=== PATIENT | male | born 1955 | race Caucasian/White ===

== ENCOUNTER → 2019-07-29 10:07 | Outpatient (CLI) | payer OTHER, SELFPAY ==
--- NOTE | 2019-07-29 10:09 | DI.RAD.S_ITS ---
PROCEDURE: XR LUMBAR SPINE 2-3V INDICATIONS: chronic axial back pain TECHNIQUE: 3 views of the lumbar spine were acquired. COMPARISON: None. FINDINGS: Bones: 5 [id number] vertebrae are present. There is normal bony alignment. No vertebral body compression fractures. No suspicious bony lesions. Soft tissues: Overlying bowel gas pattern is normal. No suspicious soft tissue calcifications. IMPRESSION: Degenerative disc disease is present and is moderately severe at C4-5 with facet osteoarthritis moderately severe to severe at that level also. No subluxation is associated. Significant spinal and foraminal stenosis likely is present at L4-L5 and potentially mild such stenosis may be present at L5-S1. No trauma found. Dictated by: Edson Rodriguez M.D. on 07/29/2019 at 11:09 Approved by: Edson Rodriguez M.D. on 07/29/2019 at 11:10
== END ==
PROVIDERS: Family Provider Family Medicine; PCP Family Medicine; Visit Provider Registered Nurse
DX: M47.816 Spondylosis without myelopathy or radiculopathy, lumbar region (principal); M48.062 Spinal stenosis, lumbar region with neurogenic claudication; M51.36 Other intervertebral disc degeneration, lumbar region; G89.29 Other chronic pain; M51.26 Other intervertebral disc displacement, lumbar region
CPT/HCPCS: 72100; 99214

== ENCOUNTER 2019-08-22 09:41 | Outpatient (CLI) | payer OTHER, SELFPAY ==
[2019-08-22] VITALS (9 sets, daily range): BP systolic 101–145; BP diastolic 58–89; PULSE 68–77; RESP 16–18; O2SAT 98–100
--- NOTE | 2019-08-22 09:44 | DI.RAD.S_ITS ---
PROCEDURE: PAIN L/S FACET INJ/BLK 1ST DEBIB COMPARISON: None. INDICATIONS: SPONDYLOSIS FINDINGS: 6 intraoperative fluoroscopy images demonstrates new placement of left L4 and L4-L5 facet joints bilaterally. IMPRESSION: Fluoroscopy guidance for pain management. Dictated by: Germaine Harding M.D. on 08/22/2019 at 11:20 Approved by: Germaine Harding M.D. on 08/22/2019 at 11:21
[2019-08-22] MEDS: MIDAZOLAM 5 MG/5 ML VIAL IV (10:46)
[2019-08-22] MEDS: fentaNYL 100 MCG/2 ML INJ 50 MCG IV (10:47)
[2019-08-22] MEDS: BETAMETHASONE 30 MG/5 ML MDV 12 MG INJ (10:54)
[2019-08-22] MEDS: BUPIVACAINE 0.5% (PF) VIAL 2 ML INJ (10:54)
[2019-08-22] MEDS: IOPAMIDOL 15 ML VIAL 3 ML INJ (10:54)
[2019-08-22] MEDS: LIDOCAINE 1% 20 ML 10 ML INJ (10:54)
--- NOTE | 2019-08-22 10:58 | PC.NURSE ---
ASSISTING PT OFF TABLE AND TRANSPORTING TO POST PROC AREA IN STABLE CONDITION. PASSING RN CARE OF PT OFF TO ABDULLAHI Fitzgerald RN.
--- NOTE | 2019-08-22 11:06 | P.PCN_ITS ---
Procedures Date/Time Date of procedure: 08/22/19 Time of procedure: 11:06 General Procedure description: PREOP DIAGNOSIS 1. FACET ARTHROPATHY 2. AXIAL LBP 3. MULTILEVEL DDD POST OP DIAGNOSIS 1. FACET ARTHROPATHY 2. AXIAL LBP 3. MULTILEVEL DDD PROCEDURES 1. FLUORSCOPICALLY GUIDED CONTRAST CONTROLLED FACET JOINT INJECTIONS BILATERAL L3/4, L4/5 PHYSICIAN: Diogo Lucas DO INDICATIONS: Edson is referred by Dr. Hidalgo for treatment of Axial LBP FINDINGS Multilevel Facet Arthropathy with Clinically significant axial LBP DESCRIPTION OF PROCEDURE Fluoroscopically guided, contrast-controlled bilateral L3/4, L4/5 facet joint i njections. Following review of allergy and review of potential side effects and complications, including, but not necessarily limited to, infection, allergic reaction, local tissue breakdown, stroke, temporary or permanent nerve injury, paralysis, and possible , the patient indicated that the patient understood and agreed to proceed. An informed consent document was signed by the patient, witnessed by a nurse, and placed in the patient's chart. Additionally, other treatment options including medications, modalities, and physical therapy were reviewed with the patient. After review of previous anaesthesic history and IV conscious sedation the patient was deemed safe to proceed with todays procedure with IV conscious sedation as ASA class II designation. Safety time-out was performed to confirm patient ID, procedure to be performed and site of procedure. IV sedation was accomplished with a combination of 3mg of Versed and 50mcg of Fentanyl was administered by the RN after DO order, titrated to patient comfort during the course of the procedure while the patient remained responsive to all verbal commands. In the prone position, following sterile prep and drape of the lumbar region, the posterior aspect of the L3/4, L4/5 facet joints were identified fluoroscopically. The skin was anesthetized via a 25-gauge 1.5-inch needle with 1% lidocaine solution into the corresponding facet joints. At this point, a 22- gauge 3.5-inch spinal needle was atraumatically introduced and advanced under fluoroscopic guidance into the corresponding facet joints. Following negative aspiration, injections of approximately 0.2-cc of Isovue 200 confirmed interarticular placement without vascular uptake. The identical procedure was then performed at the L3/4, L4/5 facet joints on the left. Radiological data, including multiple fluoroscopic views of the lumbosacral spine, reveal a spinal needle at the L3/4, L4/5 facet joints bilaterally. Subsequent views show flow of contrast material both superiorly and inferiorly within the joint space without vascular or intrathecal uptake. At this point, a total of 0.5cc including a mixture of 0.25cc Marcaine and 0.25cc betamethasone was injected without complication into each of the corresponding facet joints. The patient tolerated the procedure well without signs or symptoms of complications prior to transfer to the recovery area continued monitoring without incident. The patient was then transferred to the recovery area where they were observed for an appropriate period of time after the injection. The patient reported a VAS score of 7 prior to the procedure and a post-procedure VAS of 0. Total Fluoroscopy Time: 12 seconds Total Conscious Sedation Time: 24min POST OP INSTRUCTIONS The patient was provided a Pain Log to continue to record their response to the target-specific procedure prior to follow-up visit with their referring physician. Additionally, specific post-injection care instructions and a contact number to our office were provided if concerns arise regarding possible complications associated with the procedure are suspected. Diogo Lucas DO Complications: none
--- NOTE | 2019-08-22 11:43 | PC.NURSE ---
at 1104 returned from procedure via w/c, able to transfer self to recliner, pain free, snacks provided, tolerated, assumed care from Kriss
== END 2019-08-22 11:30 | disposition home or self-care (01) ==
LOC: RAD 09:44
PROVIDERS: Family Provider Family Medicine; PCP Family Medicine; Referring Provider Physical Medicine & Rehabilitation; Visit Provider Physical Medicine & Rehabilitation
DX: M47.816 Spondylosis without myelopathy or radiculopathy, lumbar region (principal); M54.5 Low back pain; M51.36 Other intervertebral disc degeneration, lumbar region
CPT/HCPCS: 64493; 64494; 99152; J0702; J2250; J3010

== ENCOUNTER → 2020-01-04 08:42 | Outpatient (CLI) | payer OTHER, SELFPAY ==
[2020-01-05 08:06] LABS: COVID19 Sendout Not Detected (Not Detect)
== END ==
PROVIDERS: Family Provider Family Medicine; PCP Family Medicine; Visit Provider Nurse Practitioner
DX: Z01.812 Encounter for preprocedural laboratory examination (principal)
CPT/HCPCS: 87635

== ENCOUNTER 2020-01-07 08:34 | Outpatient (CLI) | payer OTHER, SELFPAY ==
[2020-01-07] VITALS (9 sets, daily range): BP systolic 134–168; BP diastolic 69–91; PULSE 69–80; RESP 15–17; TEMP 36.9; O2SAT 93–100
--- NOTE | 2020-01-07 08:36 | DI.RAD.S_ITS ---
PROCEDURE: PAIN L/S FACET INJ/BLK 1ST DEBBI COMPARISON: [facility], XA, PAIN L/S FACET INJ/BLK 1ST DEBBI, 08/22/2019, 10:48. INDICATIONS: SPONDYLOSIS FINDINGS: Bilateral L3-L5 medial branch block needle tip ositioning has been performed. IMPRESSION: Successful needle tip localization for bilateral mid and lower lumbosacral spine and medial branch block procedures (6 total). Dictated by: Edson Rodriguez M.D. on 01/07/2020 at 12:00 Approved by: Edson Rodriguez M.D. on 01/07/2020 at 12:01
[2020-01-07] MEDS: MIDAZOLAM 5 MG/5 ML VIAL IV (10:08)
[2020-01-07] MEDS: fentaNYL 100 MCG/2 ML INJ 50 MCG IV (10:10)
[2020-01-07] MEDS: BUPIVACAINE 0.5% (PF) VIAL 5 ML INJ (10:12)
[2020-01-07] MEDS: IOPAMIDOL 15 ML VIAL 3 ML INJ (10:12)
--- NOTE | 2020-01-07 10:29 | PM.PROC.IR.1 ---
Date/Time/Diagnoses Pre-procedure diagnosis: 1. FACET ARTHROPATHY Post-procedure diagnosis: same Procedure Notes Procedure: 1. BILATERAL- L4, L5 and S1 DIAGNOSTIC MB BLOCKS with LA Anesthetic Indications: Hai is referred by for treatment of Bilateral Axial LBP. Physician: Diogo Lucas Complications: none Procedure in detail & Post-procedure care: DESCRIPTION OF PROCEDURE Fluoroscopically guided, contrast-controlled bilateral L4, L5 and S1 medial branch blocks with 0.5cc of 0.5% Marcaine. Following review of allergy and review of potential side effects and complications, including, but not necessarily limited to, infection, allergic reaction, local tissue breakdown, nerve injury, paralysis, stroke and possible , the patient indicated that the patient understood and agreed to proceed. An informed consent document was signed by the patient, witnessed by a nurse, and placed in the patient's chart. After review of previous anaesthesic history and IV conscious sedation the patient was deemed safe to proceed with today's procedure with IV conscious sedation as ASA class II designation. Safety time-out was performed to confirm patient ID, procedure to be performed and site of procedure. IV sedation was accomplished with a combination of 3mg of Versed and 50mcg of Fentanyl was administered by the RN after DO order, titrated to patient comfort during the course of the procedure while the patient remained responsive to all verbal commands In the prone position, following sterile prep and drape of the lumbar region, the right L4, L5 and S1 anatomical location of the medial branch of the dorsal ramus was identified fluoroscopically. Subsequently an anesthetic skin wheal using 1% lidocaine solution was initiated at each of the anatomical spots. Subsequently then a 22-gauge 3.5-inch spinal needle was atraumatically introduced and advanced under fluoroscopic guidance at each of the corresponding sites at the right L4, L5 and S1 MB. After negative aspiration, 0.2cc of Isovue 200 was injected, confirming placement without vascular or intrathecal uptake. Subsequently then 0.5cc of 0.5% Marcaine solution was injected at each of the corresponding sites at the right L4, L5 and S1 medial branch locations. The identical procedure was replicated on the left. The patient tolerated the procedure well without signs or symptoms of complications prior to transfer to the recovery area continued monitoring without incident. Post-procedure, the patient was monitored initiating provocative activities to measure the amount of relief from block of the facetogenic pain. The patient reported a VAS of 7 prior to the procedure and a post-procedure VAS of 1. It has been a pleasure to assist in the diagnostic and therapeutic care of your patient. POST OP INSTRUCTIONS The patient was provided with a Pain Log to complete over the next several hours and subsequent days prior to the patient's follow up with the ordering physician. 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 The patient is aware, was provided, once again, with a Pain Log and will follow up with the referring physician for review and clinical correlation
--- NOTE | 2020-01-07 10:37 | PC.NURSE ---
pt returned to pre proc room via . Stable transfer from wc to chair. Rates pain 0/10. Monitoring resumed by HENRY Mtz
== END 2020-01-07 10:57 ==
LOC: RAD 08:35
PROVIDERS: Family Provider Family Medicine; PCP Family Medicine; Referring Provider Physical Medicine & Rehabilitation; Visit Provider Physical Medicine & Rehabilitation
DX: M47.816 Spondylosis without myelopathy or radiculopathy, lumbar region (principal); M47.817 Spondylosis without myelopathy or radiculopathy, lumbosacral region; M54.5 Low back pain
CPT/HCPCS: 64493; 64494; 99152; J0702; J2250; J3010

== ENCOUNTER → 2020-02-29 11:19 | Outpatient (CLI) | payer OTHER, SELFPAY ==
[2020-03-01 06:13] LABS: COVID19 Sendout Not Detected (Not Detect)
== END ==
PROVIDERS: Family Provider Family Medicine; PCP Family Medicine; Visit Provider Physician Assistant
DX: Z11.59 Encounter for screening for other viral diseases (principal)
CPT/HCPCS: 87635

== ENCOUNTER 2020-03-03 07:21 | Outpatient (CLI) | payer OTHER, SELFPAY ==
[2020-03-03] VITALS (13 sets, daily range): BP systolic 122–157; BP diastolic 58–72; PULSE 62–75; RESP 15–25; TEMP 36.6; O2SAT 97–100
--- NOTE | 2020-03-03 07:24 | DI.RAD.S_ITS ---
PROCEDURE: PAIN L/S MED/LAT N RFA INDICATIONS: SPONDYLOSIS COMPARISON: None. FINDINGS: Fluoroscopic spot filming was performed to verify placement of spinal needles at the L3, L4, and L5 level(s), as labeled on the films. Appropriate location(s) of the needle tip(s) was confirmed by injection of iodinated contrast. IMPRESSION: Successful needle tip localization for medial branch block procedures bilaterally involving the L3, L4, and L5 levels, 6 total procedures. Dictated by: Edson Rodriguez M.D. on 03/03/2020 at 10:56 Approved by: Edson Rodriguez M.D. on 03/03/2020 at 10:57
[2020-03-03] MEDS: fentaNYL 100 MCG/2 ML INJ 50 MCG IV (08:30)
--- NOTE | 2020-03-03 08:37 | PC.NURSE ---
Pt slightly confused. Unable to remember his normal medications or what medicaiton he took this morning. Drank water on the way in to procedure, recalls being told not to drink or eat for two hours prior to procedure. Took Atenolol and Coumadin last night and this am. Dr. Lucas aware.
[2020-03-03] MEDS: MIDAZOLAM 5 MG/5 ML VIAL IV (08:51)
[2020-03-03] MEDS: LIDOCAINE 1% 20 ML 10 ML INJ (09:03)
[2020-03-03] MEDS: BUPIVACAINE 0.5% (PF) VIAL 5 ML INJ (09:04)
--- NOTE | 2020-03-03 09:13 | P.PCN_ITS ---
Date/Time/Diagnoses Date of procedure: 03/03/20 Time of procedure: 09:13 Pre-procedure diagnosis: 1. RECALCITRANT FACET ARTHROPATHY Post-procedure diagnosis: same Procedure Notes Procedure: 1. BILATERAL L3, L4 AND L5 MEDIAL BRANCH RADIOFREQUENCY NEUROTOMY Indications: Hai Sandhu is referred by for treatment of facet arthropathy. Physician: Diogo Lucas Total Fluoroscopy time (seconds): 24 Total sedation minutes: 36 Complications: none Procedure in detail & Post-procedure care: DESCRIPTION OF PROCEDURE Bilateral L3, L4 and L5 medial branch radiofrequency neurotomy The patient is well known to this clinic having undergone previous facet injections with good but temporary relief. The patient has experienced appropriate, concordant relief with previous facet and median branch blocks but the patient's pain has been recalcitrant to further conservative measures. Therefore, based upon the patient's relief and persistent symptoms, the patient is considered an appropriate candidate for facet rhizotomy. All of the patient's questions regarding the risks versus benefits of the procedure, including, but not limited to, bleeding, infection, temporary as well as lasting nerve injury, paralysis, stroke, and , as well treatment alternatives were answered to satisfaction. After obtaining informed consent, denial of pertinent drug allergies, as well as being made aware of the potential risks of bleeding, infection, spinal cord trauma, paralysis, temporary and permanent nerve damage, seizure, stroke, and possible , the patient was brought to the fluoroscopy suite and positioned prone on the fluoroscopy table. The lumbar region was prepped with Betadine and covered with a fenestrated drape in the usual sterile fashion. Appropriate monitors applied including pulse oximeter, pulse, and blood pressure for regular monitoring throughout the procedure. After review of previous anaesthesic history and IV conscious sedation the patient was deemed safe to proceed with today's procedure with IV conscious sedation as ASA class II designation. Safety time-out was performed to confirm patient ID, procedure to be performed and site of procedure. IV sedation was accomplished with a combination of 5mg of Versed and 50mcg of Fentanyl administered by the RN after DO order, titrated to patient comfort during the course of the procedure while the patient remained responsive to all verbal commands. After local infiltration using 1% lidocaine, under fluoroscopic guidance, a 10- cm RF insulated needle with a 10-mm active tip was positioned parallel to the junction of the right the superior articulating process where the L5 medial branch resides. Needle placement was confirmed with motor stimulation of .5v on the right which produced local stimulation without radicular component. The stimulation was then increased to 2v with, once again, only local multifidus stimulation without radicular component. The needle was then removed and the identical procedure was performed along the length of the right L4 medial branch with motor stimulation at .7v on the right. The identical procedure was once again performed along the length of the right L3 and medial branch with motor stimulation of .5v on the right. The medial branches were then anesthetised with 0.5% marcaine. This was then followed by two discreet lesions performed at 80 degrees Celsius for 90 seconds each. The identical procedures were repeated on the left. The patient tolerated the procedure well without signs or symptoms of complications prior to transfer to the recovery area continued monitoring without incident. The patient was then transferred to the recovery area where they were observed for an appropriate period of time after the injection. The patient reported a VAS score of 7 prior to the procedure and a post-procedure VAS of 1. POST OP INSTRUCTIONS The patient was provided a Pain Log to continue to record the patient's response to the target-specific procedure prior to the patient's follow-up visit with the referring physician. Additionally, specific post-injection care instructions and a contact number to our office were provided if concerns arise regarding possible complications associated with the procedure are suspected.
== END 2020-03-03 09:30 | disposition home or self-care (01) ==
LOC: RAD 07:22
PROVIDERS: Family Provider Family Medicine; PCP Family Medicine; Referring Provider Physical Medicine & Rehabilitation; Visit Provider Physical Medicine & Rehabilitation
DX: M47.816 Spondylosis without myelopathy or radiculopathy, lumbar region (principal)
CPT/HCPCS: 64635; 64636; 99152; 99153; J2250; J3010

== ENCOUNTER → 2020-06-01 10:33 | Outpatient (CLI) | payer OTHER, SELFPAY ==
[2020-06-01 12:56] LABS: COVID19 -Nasal RAPID Negative (Negative)
== END ==
PROVIDERS: Family Provider Family Medicine; PCP Family Medicine; Visit Provider Physical Medicine & Rehabilitation
DX: Z11.59 Encounter for screening for other viral diseases (principal)
CPT/HCPCS: 87635; C9803

== ENCOUNTER 2020-06-02 10:21 | Outpatient (CLI) | payer OTHER, SELFPAY ==
[2020-06-02] VITALS (9 sets, daily range): BP systolic 131–179; BP diastolic 56–85; PULSE 69–75; RESP 15–23; TEMP 36.7; O2SAT 97–100
--- NOTE | 2020-06-02 10:22 | DI.RAD.S_ITS ---
PROCEDURE: PAIN L/S TRANSFORAMINAL INJECT INDICATIONS: SPONDYLOSIS COMPARISON: [facility], , PAIN L/S MED/LAT N RFA, 03/03/2020, 8:32. FINDINGS: Fluoroscopic spot filming was performed to verify placement of a spinal needle at the L3-L4 level, as labeled on the films. Appropriate location of the needle tip was confirmed by injection of iodinated contrast. IMPRESSION: Intraprocedural examination within normal limits. Dictated by: Mauricio Alcantar M.D. on 06/02/2020 at 11:29 Approved by: Mauricio Alcantar M.D. on 06/02/2020 at 11:29
[2020-06-02] MEDS: MIDAZOLAM 5 MG/5 ML VIAL IV (11:00)
[2020-06-02] MEDS: fentaNYL 100 MCG/2 ML INJ 50 MCG IV (11:00)
[2020-06-02] MEDS: BETAMETHASONE 30 MG/5 ML MDV 6 MG INJ (11:03)
[2020-06-02] MEDS: DEXAMETHASONE 10 MG/ML VIAL 20 MG INJ (11:03)
[2020-06-02] MEDS: IOPAMIDOL 15 ML VIAL 3 ML INJ (11:03)
[2020-06-02] MEDS: BUPIVACAINE 0.25% (PF) VIAL 2 ML INJ (11:03)
--- NOTE | 2020-06-02 11:16 | PM.PROC.IR.1 ---
Date/Time/Diagnoses Date of procedure: 06/02/20 Time of procedure: 11:16 Pre-procedure diagnosis: 1. FORAMINAL STENOSIS WITH LE SYMPTOMS Post-procedure diagnosis: same Procedure Notes Procedure: 1. FLUOROSCOPICALLY GUIDED CONTRAST CONTROLLED TRANSFORAMINAL EPIDURAL STEROID INJECTION - RIGHT L3/4 TFESI Indications: Hai Sandhu is referred by Dr. Hidalgo for treatment of Foraminal Stenosis with right LE Symptoms Physician: Diogo Lucas Total Fluoroscopy time (seconds): 14 Total sedation minutes: 10 Complications: none Procedure in detail & Post-procedure care: FINDINGS Foraminal Nerve Root Compression secondary to disc disease and facet hypertrophy DESCRIPTION OF PROCEDURE Following review of allergy and review of potential side effects and complications, including, but not necessarily limited to, infection, allergic reaction, local tissue breakdown, stroke, temporary or permanent nerve injury, paralysis, and possible , the patient indicated that the patient understood and agreed to proceed. An informed consent document was signed by the patient, witnessed by a nurse, and placed in the patient's chart. Additionally, other treatment options including medications, modalities, and physical therapy were reviewed with the patient. After review of previous anaesthesic history and IV conscious sedation the patient was deemed safe to proceed with today?s procedure with IV conscious sedation as ASA class II designation. Safety time-out was performed to confirm patient ID, procedure to be performed and site of procedure. IV sedation was accomplished with a combination of 3mg of Versed and 50mcg of Fentanyl was administered by the RN after DO order, titrated to patient comfort during the course of the procedure while the patient remained responsive to all verbal commands In the prone position following sterile prep and drape of the lumbar region, the right L3/4 posterior neuroforamen was identified fluoroscopically. The skin was anesthetized via a 25-gauge 1.5-inch needle with 1% lidocaine solution. At this point, a 25-gauge 3.5-inch spinal needle was atraumatically introduced and advanced under fluoroscopic guidance through the posterior right L3/4 neuroforamen to approximately the anterior aspect of the canal. Depth was confirmed on lateral view. Following negative aspiration, injection of approximately 1.5 cc of Isovue 200 under live fluoroscopy in the AP view confirmed excellent flow along the nerve root, into the epidural space without vascular or intrathecal uptake observed Radiological data, including multiple fluoroscopic views of the lumbosacral spine, reveal a spinal needle at the right L3/4 posterior neuroforamen. Subsequent views show flow of contrast material flowing superiorly and inferiorly along the nerve root confirming epidural flow. Subsequently, a test dose of 1.5 cc of 1% lidocaine solution was administered and patient was observed for two minutes for signs or symptoms of complications, including abdominal pain, shortness of breath, bilateral upper or lower extremity weakness, nausea and vomiting, prior to steroid injection. At this point, a total of 3cc or 20mg of dexamethasone and 6mg of betamethasone was injected without incident. The patient tolerated the procedure well without signs or symptoms of complications prior to transfer to the recovery area continued monitoring without incident. The patient was then transferred to the recovery area where they were observed for an appropriate time after the injection. The patient reported a VAS score of 7 prior to the procedure and a post-procedure VAS of 0. POST OP INSTRUCTIONS The patient was provided a Pain Log to continue to record their response to the target-specific procedure prior to follow-up visit with their referring physician. Additionally, specific post-injection care instructions and a contact number to our office were provided if concerns arise regarding possible complications associated with the procedure are suspected.
--- NOTE | 2020-06-02 13:13 | PC.NURSE ---
Patient had right leg numbness, sat in chair and is able to move it. Patient was able to walk steps in room and was steady on feet. D/C into care of daughter
== END 2020-06-02 12:55 | disposition home or self-care (01) ==
LOC: RAD 10:22
PROVIDERS: Family Provider Family Medicine; PCP Family Medicine; Referring Provider Family Medicine; Visit Provider Physical Medicine & Rehabilitation
DX: M48.061 Spinal stenosis, lumbar region without neurogenic claudication (principal); M51.16 Intervertebral disc disorders with radiculopathy, lumbar region
CPT/HCPCS: 64483; 99152; J0702; J1100; J2250; J3010